=== PATIENT | female | born 1995 | race Two or more races ===

== ENCOUNTER 2021-08-13 14:11 | Emergency (ER) | payer MEDICAID, OTHER ==
[~2021-08-13] VITALS: Ht 154.9 cm; Wt 68.0 kg
[2021-08-13 14:20] VITALS: BP 130/86
[2021-08-13] MEDS ORDERED: ACETAMINOPHEN 500 MG TAB PO ONE (15:30)
[2021-08-13] MEDS ORDERED: ACET-1080 PO (16:37)
== END 2021-08-13 16:43 | disposition home or self-care (01) ==
LOC: ER 14:11 → EDBD 14:11 → ER 16:42
DX: O26.891 Other specified pregnancy related conditions, first trimester (principal); S01.511A Laceration without foreign body of lip, initial encounter; S63.602A Unspecified sprain of left thumb, initial encounter; Z3A.01 Less than 8 weeks gestation of pregnancy; V43.62XA Car passenger injured in collision with other type car in traffic accident, initial encounter; Y93.89 Activity, other specified; Y92.89 Other specified places as the place of occurrence of the external cause; Y99.8 Other external cause status
CPT/HCPCS: 12011; 36415; 73130; 84702; 99283; J2001